=== PATIENT | female | born 1970 | race Caucasian/White ===

== ENCOUNTER 2017-01-18 20:52 | Emergency (ER) | payer BC | END 2017-01-19 01:23 | disposition home or self-care (01) | LOC: ER 20:52 | DX: L03.213 Periorbital cellulitis (principal); H00.031 Abscess of right upper eyelid; Z90.710 Acquired absence of both cervix and uterus; R51 Headache | CPT/HCPCS: 36415; 96365; 96375; J3370; Q9967 ==